=== PATIENT | male | born 1935 | race Caucasian/White ===

== ENCOUNTER → 2018-01-23 | Outpatient (CLI) | payer OTHER ==
[~2018-01-23] MED LIST: ABIR250T PO; CA C1TAB60 PO; CHOL2000 PO; OXYC5CAP2 PO; PRED5TAB19 PO
== END | disposition home or self-care (01) ==
LOC: RAD 10:20
PROVIDERS: ATTEND Internal Medicine Hematology & Oncology
DX: C41.9 Malignant neoplasm of bone and articular cartilage, unspecified (principal)
CPT/HCPCS: 79101; A9606

== ENCOUNTER → 2018-02-20 | Outpatient (CLI) | payer OTHER | END | disposition home or self-care (01) | LOC: RAD 10:12 | PROVIDERS: ATTEND Internal Medicine Hematology & Oncology | DX: C79.51 Secondary malignant neoplasm of bone (principal); C61 Malignant neoplasm of prostate | CPT/HCPCS: 79101; A9606 ==

== ENCOUNTER 2018-03-18 13:25 | Emergency (ER) | payer OTHER ==
[~2018-03-18] VITALS: Ht 175.3 cm; Wt 61.4 kg
[2018-03-18 13:59] LABS: MEAN CORPUSCULAR HEMOGLOBIN 27.2 pg (27.5-34.5); MEAN CORPUSCULAR HGB CONC 32.4 g/dL (33.2-36.2); MEAN PLATELET VOLUME 6.9 fL (7.4-10.4); PLATELET COUNT 284 x10^3/uL (130-400); RED BLOOD COUNT 2.72 x10^6/uL (4.38-5.82); RED CELL DISTRIBUTION WIDTH 22.1 % (9.4-14.8)
[2018-03-18 14:02] LABS: ALANINE AMINOTRANSFERASE 14 U/L (12-78); ALBUMIN 2.3 g/dL (3.4-5.0); ANION GAP 10 mmol/L (5-15); CALCIUM 8.4 mg/dL (8.5-10.1); CHLORIDE 95 mmol/L (98-107); CREATININE 0.71 mg/dL (0.7-1.3)
[2018-03-18 14:05] LABS: ALKALINE PHOSPHATASE 330 U/L (45-117); BILIRUBIN,TOTAL 0.3 mg/dL (0.2-1.0); TOTAL PROTEIN 8.4 g/dL (6.4-8.2)
[2018-03-18 14:18] LABS: MD YES
[2018-03-18 14:20] LABS: BAND#(MANUAL) 0.48 x10^3/uL; BANDS%(MANUAL) 7 % (0-7); LYMPH#(MANUAL) 1.52 x10^3/uL (1-3.4); LYMPHS% (MANUAL) 22 % (22-44); MONOS#(MANUAL) 0.28 x10^3/uL (0.3-2.7); MONOS% (MANUAL) 4 % (2-9); SEG#(MANUAL) 4.62 x10^3/uL (1.8-6.8); SEGS% (MANUAL) 67 % (42-75)
[2018-03-18 14:21] LABS: ANISOCYTOSIS 2+; MICROCYTOSIS 1+
[2018-03-18 14:22] LABS: <PLATELET ESTIMATE> ADEQUATE; <PLT MORPHOLOGY> NORMAL PLT MORPH; HYPOCHROMIA 1+
[2018-03-18 15:14] VITALS: BP 116/66
[2018-03-18 15:39] VITALS: BP 131/65
[2018-03-18 16:09] VITALS: BP 130/77
[2018-03-18] MEDS ORDERED: ACETAMINOPHEN 325 MG TABLET ONE (16:14)
[2018-03-18 16:17] VITALS: BP 141/70
[2018-03-18] MEDS ORDERED: ACETAMINOPHEN 325 MG TABLET PO ONE (16:30)
[2018-03-18 16:35] VITALS: BP 125/64
[2018-03-18 17:22] VITALS: BP 116/79
== END 2018-03-18 17:45 | disposition home or self-care (01) ==
LOC: ED 17:10
DX: D64.9 Anemia, unspecified (principal); Z85.46 Personal history of malignant neoplasm of prostate
CPT/HCPCS: 36415; 80053; 85025; 86850; 86900; 86923; 99284; P9016

== ENCOUNTER → 2018-03-21 | Outpatient (CLI) | payer OTHER | END | disposition home or self-care (01) | LOC: RAD 10:22 | PROVIDERS: ATTEND Internal Medicine Hematology & Oncology | DX: C79.51 Secondary malignant neoplasm of bone (principal); C61 Malignant neoplasm of prostate; R74.8 Abnormal levels of other serum enzymes | CPT/HCPCS: 79101; A9606 ==

== ENCOUNTER → 2018-04-18 | Outpatient (CLI) | payer OTHER ==
[~2018-04-18] MED LIST changes: +BACITRACIN 50,000 UNIT ONE; +BACITRACIN OINT 500U/GM, 15 GM ONE; +BUPIVACAINE/PF 0.5% ONE; +EPINEPHRINE 1 MG/ML, 1ML ONE; +THROMBIN 20,000 UNIT VIAL TP ONE; +TRAM50TA2 PO
== END | disposition home or self-care (01) ==
LOC: RAD 09:55
PROVIDERS: ATTEND Internal Medicine Hematology & Oncology
DX: C79.51 Secondary malignant neoplasm of bone (principal); C61 Malignant neoplasm of prostate; Z87.891 Personal history of nicotine dependence
CPT/HCPCS: 79101; A9606

== ENCOUNTER 2018-04-20 19:28 | Inpatient (IN) | payer OTHER ==
[~2018-04-20] VITALS: Ht 182.9 cm; Wt 66.8 kg
[~2018-04-20 19:28] MED LIST changes: -BACITRACIN 50,000 UNIT ONE; -BACITRACIN OINT 500U/GM, 15 GM ONE; -BUPIVACAINE/PF 0.5% ONE; -EPINEPHRINE 1 MG/ML, 1ML ONE; -THROMBIN 20,000 UNIT VIAL TP ONE
[2018-04-20] MEDS ORDERED: SODIUM CHLORIDE 0.9% 1,000ML IVBOLUS ONE ×2 (20:00→23:00)
[2018-04-20] MEDS ORDERED: SODIUM CHLORIDE FLUSH 10ML SYR IVF ONE (20:00)
[2018-04-20 20:27] LABS: MEAN CORPUSCULAR HEMOGLOBIN 29.9 pg (27.5-34.5); MEAN CORPUSCULAR VOLUME 87.8 fL (81-97); RED BLOOD COUNT 2.57 x10^6/uL (4.38-5.82); RED CELL DISTRIBUTION WIDTH 18.2 % (9.4-14.8)
[2018-04-20 20:30] LABS: INTERNATIONAL NORMALIZED RATIO 1.1 (0.93-1.1); PROTHROMBIN TIME 11.3 Seconds (9.6-11.5)
[2018-04-20 20:37] LABS: ALANINE AMINOTRANSFERASE 13 U/L (12-78); ANION GAP 11 mmol/L (5-15); CALCIUM 7.6 mg/dL (8.5-10.1); CHLORIDE 92 mmol/L (98-107); CREATININE 0.47 mg/dL (0.7-1.3)
[2018-04-20 20:39] LABS: ALKALINE PHOSPHATASE 205 U/L (45-117); BILIRUBIN,TOTAL 0.5 mg/dL (0.2-1.0); TOTAL PROTEIN 7.4 g/dL (6.4-8.2)
[2018-04-20 20:48] LABS: BASOPHILS % (AUTO) 0 % (0-1); EOSINOPHILS % (AUTO) 0 % (1-7); LYMPHOCYTES # (AUTO) 0.33 x10^3/uL (1-3.4); LYMPHOCYTES % (AUTO) 5 % (22-44); MD SCAN; MEAN PLATELET VOLUME 6.9 fL (7.4-10.4); MONOCYTES # (AUTO) 0.51 x10^3/uL (0.2-0.8); MONOCYTES % (AUTO) 8 % (2-9); NEUTROPHILS # (AUTO) 5.84 x10^3/uL (1.8-6.8); NEUTROPHILS % (AUTO) 87 % (42-75); PLATELET COUNT 107 x10^3/uL (130-400)
[2018-04-20 21:38] LABS: CULTURE INDICATED? YES; MICROSCOPIC INDICATED
[2018-04-20] MEDS ORDERED: CEFTRIAXONE 1,000 MG in SODIUM CHLORIDE 0.9% 50 ML IV ONE (22:00)
[2018-04-20] MEDS ORDERED: MORPHINE SULFATE 4 MG/ML, 1ML IVPush ONE (22:30)
[2018-04-20] MEDS ORDERED: CEFTRIAXONE PMX 1GM/50ML 50 ML ONE (22:35)
[2018-04-20] MEDS ORDERED: MORPHINE SULFATE 4 MG/ML, 1ML ONE (22:36)
[2018-04-20] MEDS ORDERED: CEFTRIAXONE 2 GM in SODIUM CHLORIDE 0.9% 50 ML IV SCH (23:00)
[2018-04-20] MEDS ORDERED: PHARMACY MAY ADJ FOR RENAL FX MC PRN (23:00)
[2018-04-20] MEDS ORDERED: SODIUM CHLORIDE 0.9%, 500ML IVBOLUS PRN ×2 (23:00)
[2018-04-20 23:06] LABS: ABSOLUTE RETICS # 0.033 x10^6/uL (0.5-1.5); RETICULOCYTE COUNT % 1.25 % (0.5-1.5)
[2018-04-20 23:09] LABS: RED BLOOD COUNT 2.57 x10^6/uL (4.38-5.82)
[2018-04-21 00:19] VITALS: BP 114/47
[2018-04-21 00:30] VITALS: BP 110/55
[2018-04-21 00:45] VITALS: BP 115/56
[2018-04-21] MEDS: SODIUM CHLORIDE 0.9% 1,000 ML IV SCH ×2 (01:13→21:56)
[2018-04-21 01:45] VITALS: BP 98/48
[2018-04-21 03:35] LABS: BASOPHILS # (AUTO) 0.01 x10^3/uL (0-0.1); BASOPHILS % (AUTO) 0 % (0-1); EOSINOPHILS # (AUTO) 0.01 x10^3/uL (0-0.4); EOSINOPHILS % (AUTO) 0 % (1-7); LYMPHOCYTES # (AUTO) 0.37 x10^3/uL (1-3.4); LYMPHOCYTES % (AUTO) 6 % (22-44); MD NO; MEAN CORPUSCULAR HEMOGLOBIN 30.2 pg (27.5-34.5); MEAN CORPUSCULAR HGB CONC 33.8 g/dL (33.2-36.2); MEAN CORPUSCULAR VOLUME 89.6 fL (81-97); MONOCYTES # (AUTO) 0.56 x10^3/uL (0.2-0.8); MONOCYTES % (AUTO) 9 % (2-9); NEUTROPHILS # (AUTO) 5.03 x10^3/uL (1.8-6.8); NEUTROPHILS % (AUTO) 84 % (42-75); PLATELET COUNT 100 x10^3/uL (130-400); RED BLOOD COUNT 2.73 x10^6/uL (4.38-5.82); RED CELL DISTRIBUTION WIDTH 17.2 % (9.4-14.8)
[2018-04-21 03:46] LABS: ALBUMIN 1.8 g/dL (3.4-5.0); ANION GAP 10 mmol/L (5-15); CALCIUM 7.2 mg/dL (8.5-10.1); CHLORIDE 95 mmol/L (98-107)
[2018-04-21 03:50] LABS: ALANINE AMINOTRANSFERASE 10 U/L (12-78); ALKALINE PHOSPHATASE 185 U/L (45-117); BILIRUBIN,TOTAL 0.8 mg/dL (0.2-1.0); CREATININE 0.48 mg/dL (0.7-1.3); TOTAL PROTEIN 6.6 g/dL (6.4-8.2)
[2018-04-21 04:00] VITALS: BP 142/73
[2018-04-21] MEDS: MORPHINE SULFATE 4 MG/ML, 1ML IV PRN ×2 (04:20→06:27)
[2018-04-21] MEDS ORDERED: POTASSIUM PHOSPHATE 44 MEQ in SODIUM CHLORIDE 0.9% 500 ML IV ONE (08:00)
[2018-04-21] MEDS ORDERED: CEFTRIAXONE 1,000 MG in SODIUM CHLORIDE 0.9% 50 ML IV SCH (10:00)
[2018-04-21] MEDS ORDERED: ZIPRASIDONE 20 MG INJ IM PRN (13:30)
[2018-04-21] MEDS ORDERED: CEFTRIAXONE 2 GM in SODIUM CHLORIDE 0.9% 50 ML IV SCH (22:00)
[2018-04-22 04:00] VITALS: BP 102/48
[2018-04-22 05:38] LABS: ANION GAP 13 mmol/L (5-15); CALCIUM 7.2 mg/dL (8.5-10.1); CHLORIDE 98 mmol/L (98-107); CREATININE 0.37 mg/dL (0.7-1.3)
[2018-04-22 05:46] LABS: MEAN CORPUSCULAR HEMOGLOBIN 30.4 pg (27.5-34.5); MEAN CORPUSCULAR HGB CONC 34.2 g/dL (33.2-36.2); MEAN CORPUSCULAR VOLUME 88.9 fL (81-97); MEAN PLATELET VOLUME 6.8 fL (7.4-10.4); PLATELET COUNT 98 x10^3/uL (130-400); RED BLOOD COUNT 2.67 x10^6/uL (4.38-5.82); RED CELL DISTRIBUTION WIDTH 17.3 % (9.4-14.8)
[2018-04-22 06:16] LABS: BASOPHILS # (AUTO) 0.01 x10^3/uL (0-0.1); BASOPHILS % (AUTO) 0 % (0-1); EOSINOPHILS # (AUTO) 0.02 x10^3/uL (0-0.4); EOSINOPHILS % (AUTO) 1 % (1-7); LYMPHOCYTES % (AUTO) 6 % (22-44); MD SCAN; MONOCYTES # (AUTO) 0.43 x10^3/uL (0.2-0.8); MONOCYTES % (AUTO) 8 % (2-9); NEUTROPHILS # (AUTO) 4.49 x10^3/uL (1.8-6.8); NEUTROPHILS % (AUTO) 85 % (42-75)
[2018-04-22] MEDS ORDERED: SODIUM PHOSPHATE 20 MMOL in SODIUM CHLORIDE 0.9% 500 ML IV ONE (08:00)
[2018-04-22] MEDS: LINEZOLID PMX 600MG/300ML 300 ML IV SCH ×2 (08:10→20:29)
[2018-04-22] MEDS: FENTANYL 12 MCG PATCH TD SCH (09:00)
[2018-04-22] MEDS ORDERED: ATROPINE SYRINGE 0.1 MG/ML, 10ML ONE (11:43)
[2018-04-22] MEDS ORDERED: LORazepam 2 MG/ML, 1ML ONE (18:03)
[2018-04-22] MEDS: SODIUM CHLORIDE 0.9% 1,000 ML IV SCH (18:15)
[2018-04-22] MEDS ORDERED: LORazepam 2 MG/ML, 1ML IVPush PRN (18:30)
[2018-04-22] MEDS ORDERED: LEVETIRACETAM 1,000 MG in SODIUM CHLORIDE 0.9% 100 ML IV ONE (18:30)
[2018-04-22] MEDS ORDERED: OMNIPAQUE 350 MG/ML, 75ML BOTTLE ONE (19:01)
[2018-04-23] VITALS (10 sets, daily range): BP systolic 116–143; BP diastolic 54–73
[2018-04-23 04:27] LABS: MEAN CORPUSCULAR HEMOGLOBIN 29.8 pg (27.5-34.5); MEAN CORPUSCULAR HGB CONC 33.6 g/dL (33.2-36.2); MEAN CORPUSCULAR VOLUME 88.6 fL (81-97); RED BLOOD COUNT 2.73 x10^6/uL (4.38-5.82); RED CELL DISTRIBUTION WIDTH 17.1 % (9.4-14.8)
[2018-04-23 04:34] LABS: ANION GAP 9 mmol/L (5-15); CALCIUM 7.5 mg/dL (8.5-10.1); CHLORIDE 98 mmol/L (98-107); CREATININE 0.38 mg/dL (0.7-1.3)
[2018-04-23 05:16] LABS: BASOPHILS # (AUTO) 0.01 x10^3/uL (0-0.1); BASOPHILS % (AUTO) 0 % (0-1); EOSINOPHILS % (AUTO) 0 % (1-7); LYMPHOCYTES # (AUTO) 0.36 x10^3/uL (1-3.4); LYMPHOCYTES % (AUTO) 6 % (22-44); MD SCAN; MEAN PLATELET VOLUME 6.7 fL (7.4-10.4); MONOCYTES # (AUTO) 0.53 x10^3/uL (0.2-0.8); MONOCYTES % (AUTO) 9 % (2-9); NEUTROPHILS # (AUTO) 5.12 x10^3/uL (1.8-6.8); NEUTROPHILS % (AUTO) 85 % (42-75); PLATELET COUNT 95 x10^3/uL (130-400)
[2018-04-23] MEDS ORDERED: LEVETIRACETAM 750 MG in SODIUM CHLORIDE 0.9% 100 ML IV SCH ×2 (06:30→22:00)
[2018-04-23] MEDS: POTASSIUM CHLORIDE 20 MEQ TAB.ER.PRT PO SCH ×2 (08:00→17:00)
[2018-04-23] MEDS ORDERED: SODIUM PHOSPHATE 10 MMOL in SODIUM CHLORIDE 0.9% 500 ML IV ONE (08:00)
[2018-04-23] MEDS: LINEZOLID PMX 600MG/300ML 300 ML IV SCH (08:33)
[2018-04-23] MEDS: SODIUM CHLORIDE 0.9% 1,000 ML IV SCH (10:43)
[2018-04-23] MEDS ORDERED: SODIUM CHLORIDE 3% 500 ML IV ONE (13:00)
[2018-04-23] MEDS ORDERED: POTASSIUM CHLORIDE 20 MEQ in SODIUM CHLORIDE 0.9% 250 ML IV ONE (13:00)
[2018-04-23 13:47] LABS: PLATELET (PFA) 91 x10^3/uL (130-400)
[2018-04-23] MEDS ORDERED: FENTANYL PF 250 MCG/5ML ONE (17:27)
[2018-04-23] MEDS ORDERED: PROPOFOL 10 MG/ML, 20ML ONE (17:28)
[2018-04-23] MEDS ORDERED: SUCCINYLCHOLINE 20 MG/ML, 10ML ONE (17:28)
[2018-04-23] MEDS ORDERED: PHENYLEPHRINE 10 MG/ML ONE (17:36)
[2018-04-23] MEDS ORDERED: CEFUROXIME 1.5 GM ONE (18:20)
[2018-04-23 18:21] LABS: BASOPHILS # (AUTO) 0.02 x10^3/uL (0-0.1); BASOPHILS % (AUTO) 0 % (0-1); EOSINOPHILS # (AUTO) 0.02 x10^3/uL (0-0.4); EOSINOPHILS % (AUTO) 0 % (1-7); LYMPHOCYTES # (AUTO) 0.26 x10^3/uL (1-3.4); LYMPHOCYTES % (AUTO) 5 % (22-44); MD NO; MEAN CORPUSCULAR HEMOGLOBIN 30.6 pg (27.5-34.5); MEAN CORPUSCULAR HGB CONC 33.8 g/dL (33.2-36.2); MEAN CORPUSCULAR VOLUME 90.4 fL (81-97); MEAN PLATELET VOLUME 6.6 fL (7.4-10.4); MONOCYTES # (AUTO) 0.31 x10^3/uL (0.2-0.8); MONOCYTES % (AUTO) 7 % (2-9); NEUTROPHILS # (AUTO) 4.24 x10^3/uL (1.8-6.8); NEUTROPHILS % (AUTO) 87 % (42-75); PLATELET COUNT 128 x10^3/uL (130-400); RED BLOOD COUNT 3.25 x10^6/uL (4.38-5.82); RED CELL DISTRIBUTION WIDTH 16.1 % (9.4-14.8)
[2018-04-23 18:29] LABS: ANION GAP 10 mmol/L (5-15); CALCIUM 7.7 mg/dL (8.5-10.1); CHLORIDE 100 mmol/L (98-107); CREATININE 0.36 mg/dL (0.7-1.3)
[2018-04-23] MEDS ORDERED: ROCURONIUM 10 MG/ML,10ML ONE (18:41)
[2018-04-23] MEDS ORDERED: BUPIVACAINE/PF 0.5% INFIL ONE (19:50)
[2018-04-23] MEDS ORDERED: BACITRACIN 50,000 UNIT IRRIG ONE (19:50)
[2018-04-23] MEDS ORDERED: THROMBIN 20,000 UNIT VIAL TP ONE (19:50)
[2018-04-23] MEDS ORDERED: ONDANSETRON 2MG/ML, 2ML ONE (20:34)
[2018-04-23] MEDS ORDERED: VASOPRESSIN 20 UNIT/ML, 1ML ONE (20:34)
[2018-04-23] MEDS ORDERED: FENTANYL PF 100 MCG/2ML IV PRN (21:00)
[2018-04-23] MEDS ORDERED: hydrALAzine 20 MG/ML, 1ML IV PRN (21:00)
[2018-04-23] MEDS ORDERED: ONDANSETRON 2MG/ML, 2ML IV PRN (21:00)
[2018-04-23] MEDS ORDERED: LABETALOL 5MG/ML, 20ML IV PRN (21:00)
[2018-04-23] MEDS ORDERED: MORPHINE SULFATE 4 MG/ML, 1ML IVPush PRN (21:00)
[2018-04-23] MEDS ORDERED: MIDAZOLAM 1 MG/ML, 2ML ONE ×2 (21:26→21:36)
[2018-04-23] MEDS ORDERED: FENTANYL PF 100 MCG/2ML ONE (21:29)
[2018-04-23] MEDS ORDERED: morphine SULFATE 10 MG/ML, 1ML ONE (21:29)
[2018-04-23] MEDS ORDERED: SODIUM CHLORIDE 3% 500 ML IV SCH (22:20)
[2018-04-23] MEDS ORDERED: SODIUM CHLORIDE 0.9%, 250ML ONE (22:49)
[2018-04-23] MEDS ORDERED: AMIODARONE 50 MG/ML, 3ML ONE (22:49)
[2018-04-23] MEDS ORDERED: DEXTROSE 5%, 500ML ONE (22:49)
[2018-04-23] MEDS ORDERED: DEXTROSE 5%, 100ML ONE (22:49)
[2018-04-23] MEDS ORDERED: EPINEPHRINE 1 MG/ML, 1ML ONE (22:49)
[2018-04-23] MEDS ORDERED: CODE BLUE RESPONSE XX ONE (22:49)
[2018-04-23 22:58] LABS: MD YES; MEAN CORPUSCULAR HEMOGLOBIN 30.9 pg (27.5-34.5); MEAN CORPUSCULAR HGB CONC 34.1 g/dL (33.2-36.2); MEAN CORPUSCULAR VOLUME 90.6 fL (81-97); MEAN PLATELET VOLUME 6.4 fL (7.4-10.4); PLATELET COUNT 139 x10^3/uL (130-400); RED CELL DISTRIBUTION WIDTH 16.5 % (9.4-14.8)
[2018-04-23] MEDS ORDERED: LORazepam 2 MG/ML, 1ML IVPush ONE (23:00)
[2018-04-23] MEDS ORDERED: AMIODARONE 150 MG in DEXTROSE 5% 100 ML IV ONE (23:00)
[2018-04-23] MEDS ORDERED: EPINEPHRINE 2 MG in SODIUM CHLORIDE 0.9% 248 ML IV PRN (23:00)
[2018-04-23] MEDS ORDERED: LORazepam 20 MG in SODIUM CHLORIDE 0.9% 240 ML IV SCH (23:00)
[2018-04-23] MEDS ORDERED: FILTER 0.22 MICRON IV PRN (23:00)
[2018-04-23] MEDS ORDERED: POTASSIUM CHLORIDE 40 MEQ in SODIUM CHLORIDE 0.9% 500 ML IV ONE (23:00)
[2018-04-23] MEDS ORDERED: AMIODARONE 900 MG in DEXTROSE 5% 482 ML IV PRN (23:00)
[2018-04-23 23:09] LABS: ALANINE AMINOTRANSFERASE 12 U/L (12-78); ALBUMIN 1.6 g/dL (3.4-5.0); ANION GAP 11 mmol/L (5-15); CALCIUM 7.1 mg/dL (8.5-10.1); CHLORIDE 107 mmol/L (98-107); CREATININE 0.46 mg/dL (0.7-1.3)
[2018-04-23 23:12] LABS: ALKALINE PHOSPHATASE 145 U/L (45-117); BAND#(MANUAL) 0.31 x10^3/uL; BANDS%(MANUAL) 3 % (0-7); BILIRUBIN,TOTAL 0.5 mg/dL (0.2-1.0); LYMPH#(MANUAL) 1.24 x10^3/uL (1-3.4); LYMPHS% (MANUAL) 12 % (22-44); METAMYELOCYTES% (MANUAL) 1 % (0-1); MYELOCYTES% (MANUAL) 1 % (0-0); TOTAL PROTEIN 6.1 g/dL (6.4-8.2)
[2018-04-23 23:13] LABS: ANISOCYTOSIS 1+; EOS% (MANUAL) 1 % (1-7); MONOS% (MANUAL) 1 % (2-9); POLYCHROMASIA 1+; SEG#(MANUAL) 8.34 x10^3/uL (1.8-6.8); SEGS% (MANUAL) 81 % (42-75)
[2018-04-23 23:14] LABS: <PLATELET ESTIMATE> ADEQUATE; <PLT MORPHOLOGY> NORMAL PLT MORPH
[2018-04-23 23:16] LABS: TOXIC GRAN 1+
[2018-04-23] MEDS ORDERED: PHARMACY MAY ADJ FOR RENAL FX MC SCH (23:30)
[2018-04-24] MEDS: LINEZOLID PMX 600MG/300ML 300 ML IV SCH (01:36)
[2018-04-24] MEDS: FAMOTIDINE 20 MG/2 ML IV SCH ×2 (02:16→13:56)
[2018-04-24] MEDS: NOREPINEPHRINE 4 MG in SODIUM CHLORIDE 0.9% 246 ML IV PRN ×4 (02:50→17:27)
[2018-04-24 03:13] LABS: TROPONIN I 0.185 ng/mL (0.000-0.045)
[2018-04-24] MEDS ORDERED: EPINEPHRINE 4 MG in SODIUM CHLORIDE 0.9% 246 ML IV PRN (03:23)
[2018-04-24 04:00] VITALS: BP 121/46
[2018-04-24] MEDS: POTASSIUM CHLORIDE 40 MEQ in SODIUM CHLORIDE 0.9% 1,000 ML IV SCH ×2 (04:00→05:09)
[2018-04-24 04:52] LABS: MEAN CORPUSCULAR HEMOGLOBIN 30.6 pg (27.5-34.5); MEAN CORPUSCULAR HGB CONC 33.5 g/dL (33.2-36.2); MEAN CORPUSCULAR VOLUME 91.4 fL (81-97); MEAN PLATELET VOLUME 6.8 fL (7.4-10.4); PLATELET COUNT 150 x10^3/uL (130-400); RED BLOOD COUNT 2.45 x10^6/uL (4.38-5.82); RED CELL DISTRIBUTION WIDTH 17.1 % (9.4-14.8)
[2018-04-24 04:56] LABS: ANION GAP 15 mmol/L (5-15); CHLORIDE 110 mmol/L (98-107); CREATININE 0.62 mg/dL (0.7-1.3)
[2018-04-24 05:47] LABS: MD YES
[2018-04-24 05:49] LABS: ANISOCYTOSIS 1+; BAND#(MANUAL) 0.99 x10^3/uL; BANDS%(MANUAL) 9 % (0-7); LYMPH#(MANUAL) 0.77 x10^3/uL (1-3.4); LYMPHS% (MANUAL) 7 % (22-44); METAMYELOCYTES# (MANUAL) 0.33 x10^3/uL (0-0); METAMYELOCYTES% (MANUAL) 3 % (0-1); MONOS#(MANUAL) 0.22 x10^3/uL (0.3-2.7); MONOS% (MANUAL) 2 % (2-9); SEG#(MANUAL) 8.69 x10^3/uL (1.8-6.8); SEGS% (MANUAL) 79 % (42-75)
[2018-04-24 05:50] LABS: <PLATELET ESTIMATE> ADEQUATE; <PLT MORPHOLOGY> NORMAL PLT MORPH; TOXIC GRAN 1+
[2018-04-24] MEDS ORDERED: FILTER 0.22 MICRON IV ONE (09:00)
[2018-04-24] MEDS ORDERED: PHENYTOIN SODIUM 1,000 MG in SODIUM CHLORIDE 0.9% 100 ML IV ONE (09:00)
[2018-04-24] MEDS: LORazepam 20 MG in DEXTROSE 5% 240 ML IV SCH ×2 (09:38→20:00)
[2018-04-24] MEDS: AMPICILLIN 1 GM in SODIUM CHLORIDE 0.9% 100 ML IV SCH ×3 (09:46→21:05)
[2018-04-24] MEDS ORDERED: LEVETIRACETAM 1,000 MG in SODIUM CHLORIDE 0.9% 100 ML IV SCH (10:00)
[2018-04-24 10:06] VITALS: BP 118/47
[2018-04-24 10:21] VITALS: BP 116/51
[2018-04-24 10:36] VITALS: BP 99/45
[2018-04-24] MEDS: LEVETIRACETAM 1,000 MG in SODIUM CHLORIDE 0.9% 100 ML IV SCH ×2 (11:07→22:11)
[2018-04-24 12:00] VITALS: BP 119/49
[2018-04-24] MEDS ORDERED: EPINEPHRINE SYRINGE 0.1 MG/ML, 10ML ONE (12:00)
[2018-04-24] MEDS ORDERED: SODIUM CHLORIDE 3% 500 ML IV SCH ×2 (22:20)
[2018-04-25] VITALS (8 sets, daily range): BP systolic 118–143; BP diastolic 39–47
[2018-04-25] MEDS: FAMOTIDINE 20 MG/2 ML IV SCH ×2 (01:19→15:16)
[2018-04-25] MEDS: AMPICILLIN 1 GM in SODIUM CHLORIDE 0.9% 100 ML IV SCH ×4 (03:20→21:23)
[2018-04-25 04:27] LABS: FIO2 40 %
[2018-04-25 04:39] LABS: ANION GAP 9 mmol/L (5-15); CALCIUM 6.8 mg/dL (8.5-10.1); CHLORIDE 115 mmol/L (98-107); CREATININE 0.44 mg/dL (0.7-1.3)
[2018-04-25 05:49] LABS: MEAN CORPUSCULAR HEMOGLOBIN 31.1 pg (27.5-34.5); MEAN CORPUSCULAR HGB CONC 35.2 g/dL (33.2-36.2); MEAN CORPUSCULAR VOLUME 88.3 fL (81-97); RED BLOOD COUNT 2.29 x10^6/uL (4.38-5.82); RED CELL DISTRIBUTION WIDTH 16.2 % (9.4-14.8)
[2018-04-25] MEDS: LORazepam 20 MG in DEXTROSE 5% 240 ML IV SCH ×2 (06:00→16:00)
[2018-04-25 06:11] LABS: MD YES; PLATELET COUNT 70 x10^3/uL (130-400)
[2018-04-25 06:14] LABS: BAND#(MANUAL) 0.25 x10^3/uL; BANDS%(MANUAL) 4 % (0-7); LYMPH#(MANUAL) 0.56 x10^3/uL (1-3.4); LYMPHS% (MANUAL) 9 % (22-44); MONOS#(MANUAL) 0.12 x10^3/uL (0.3-2.7); MONOS% (MANUAL) 2 % (2-9); NRBC % (MANUAL) 1 % (0-1); SEG#(MANUAL) 5.27 x10^3/uL (1.8-6.8); SEGS% (MANUAL) 85 % (42-75)
[2018-04-25 06:15] LABS: ANISOCYTOSIS 1+
[2018-04-25 06:16] LABS: <PLATELET ESTIMATE> DECREASED; TOXIC GRAN 1+
[2018-04-25 06:17] LABS: SMALL PLATELETS 1+
[2018-04-25] MEDS ORDERED: MAGNESIUM SULFATE PMX 2GM/50ML 50 ML IV ONE (07:30)
[2018-04-25] MEDS ORDERED: POTASSIUM CHLORIDE 10% 40 MEQ/30 ML UDC PO ONE (07:30)
[2018-04-25] MEDS: LEVETIRACETAM 1,000 MG in SODIUM CHLORIDE 0.9% 100 ML IV SCH ×2 (09:46→21:57)
[2018-04-25] MEDS: FENTANYL 12 MCG PATCH TD SCH (10:36)
[2018-04-25] MEDS: MORPHINE SULFATE 4 MG/ML, 1ML IV PRN (13:37)
[2018-04-25] MEDS ORDERED: POTASSIUM CHLORIDE 10% 40 MEQ/30 ML UDC ONE (14:59)
[2018-04-25] MEDS ORDERED: hydrALAzine 20 MG/ML, 1ML IV PRN (16:00)
[2018-04-25] MEDS: LABETALOL 5MG/ML, 20ML IVPush PRN (21:57)
[2018-04-26] MEDS ORDERED: FAMOTIDINE 20 MG TABLET ONE (01:07)
[2018-04-26] MEDS: LORazepam 20 MG in DEXTROSE 5% 240 ML IV SCH (01:10)
[2018-04-26] MEDS ORDERED: FAMOTIDINE 40 MG/5 ML ORAL SUSP NG SCH (01:30)
[2018-04-26] MEDS: FAMOTIDINE 40 MG/5 ML ORAL SUSP NG SCH ×2 (03:27→16:28)
[2018-04-26] MEDS: AMPICILLIN 1 GM in SODIUM CHLORIDE 0.9% 100 ML IV SCH ×4 (03:30→21:26)
[2018-04-26 04:46] VITALS: BP 121/56
[2018-04-26 04:51] LABS: ANION GAP 7 mmol/L (5-15); CHLORIDE 108 mmol/L (98-107)
[2018-04-26 04:53] LABS: CREATININE 0.45 mg/dL (0.7-1.3); TRIGLYCERIDES 91 mg/dL (50-200)
[2018-04-26 04:56] LABS: MEAN CORPUSCULAR HEMOGLOBIN 30.7 pg (27.5-34.5); MEAN CORPUSCULAR HGB CONC 34.6 g/dL (33.2-36.2); MEAN CORPUSCULAR VOLUME 88.5 fL (81-97); RED CELL DISTRIBUTION WIDTH 15.6 % (9.4-14.8)
[2018-04-26 05:53] LABS: MD YES; MEAN PLATELET VOLUME 6.9 fL (7.4-10.4); PLATELET COUNT 55 x10^3/uL (130-400)
[2018-04-26 05:54] LABS: BAND#(MANUAL) 0.56 x10^3/uL; BANDS%(MANUAL) 8 % (0-7); LYMPH#(MANUAL) 0.14 x10^3/uL (1-3.4); LYMPHS% (MANUAL) 2 % (22-44); METAMYELOCYTES# (MANUAL) 0.07 x10^3/uL (0-0); METAMYELOCYTES% (MANUAL) 1 % (0-1); MONOS#(MANUAL) 0.07 x10^3/uL (0.3-2.7); MONOS% (MANUAL) 1 % (2-9); SEG#(MANUAL) 6.16 x10^3/uL (1.8-6.8); SEGS% (MANUAL) 88 % (42-75)
[2018-04-26 05:55] LABS: ANISOCYTOSIS 1+
[2018-04-26 05:56] LABS: <PLATELET ESTIMATE> DECREASED; <PLT MORPHOLOGY> NORMAL PLT MORPH; TOXIC GRAN 1+
[2018-04-26] MEDS ORDERED: POTASSIUM PHOSPHATE 44 MEQ in SODIUM CHLORIDE 0.9% 500 ML IV ONE ×2 (07:00→12:30)
[2018-04-26] MEDS ORDERED: MAGNESIUM SULFATE PMX 4GM/100M 100 ML IV ONE (07:00)
[2018-04-26] MEDS ORDERED: POTASSIUM CHLORIDE 10% 40 MEQ/30 ML UDC PO ONE (12:30)
[2018-04-26] MEDS: LEVETIRACETAM 1,500 MG in SODIUM CHLORIDE 0.9% 100 ML IV SCH (22:12)
[2018-04-26] MEDS: FENTANYL PF 100 MCG/2ML IVPush PRN (23:15)
[2018-04-27] MEDS: FENTANYL PF 100 MCG/2ML IVPush PRN (01:08)
[2018-04-27] MEDS: FAMOTIDINE 40 MG/5 ML ORAL SUSP NG SCH ×2 (03:08→15:21)
[2018-04-27] MEDS: AMPICILLIN 1 GM in SODIUM CHLORIDE 0.9% 100 ML IV SCH (03:08)
[2018-04-27] MEDS: LABETALOL 5MG/ML, 20ML IVPush PRN (03:08)
[2018-04-27 04:00] VITALS: BP 121/55
[2018-04-27 04:52] LABS: ALBUMIN 1.7 g/dL (3.4-5.0); ANION GAP 9 mmol/L (5-15); CALCIUM 7.1 mg/dL (8.5-10.1); CHLORIDE 106 mmol/L (98-107)
[2018-04-27 04:54] LABS: MEAN CORPUSCULAR HEMOGLOBIN 30.3 pg (27.5-34.5); MEAN CORPUSCULAR HGB CONC 34.2 g/dL (33.2-36.2); MEAN CORPUSCULAR VOLUME 88.7 fL (81-97); RED BLOOD COUNT 2.59 x10^6/uL (4.38-5.82); RED CELL DISTRIBUTION WIDTH 15.8 % (9.4-14.8)
[2018-04-27 04:56] LABS: ALANINE AMINOTRANSFERASE 16 U/L (12-78); ALKALINE PHOSPHATASE 171 U/L (45-117); BILIRUBIN,TOTAL 0.4 mg/dL (0.2-1.0); TOTAL PROTEIN 5.9 g/dL (6.4-8.2)
[2018-04-27 05:56] LABS: MD YES; MEAN PLATELET VOLUME 8.2 fL (7.4-10.4)
[2018-04-27 05:58] LABS: <PLATELET ESTIMATE> DECREASED; <PLT MORPHOLOGY> NORMAL PLT MORPH; ANISOCYTOSIS 1+; BANDS%(MANUAL) 13 % (0-7); LYMPH#(MANUAL) 0.69 x10^3/uL (1-3.4); LYMPHS% (MANUAL) 10 % (22-44); METAMYELOCYTES# (MANUAL) 0.07 x10^3/uL (0-0); METAMYELOCYTES% (MANUAL) 1 % (0-1); MONOS#(MANUAL) 0.14 x10^3/uL (0.3-2.7); MONOS% (MANUAL) 2 % (2-9); SEG#(MANUAL) 5.11 x10^3/uL (1.8-6.8); SEGS% (MANUAL) 74 % (42-75); TOXIC GRAN 1+
[2018-04-27 05:59] LABS: POLYCHROMASIA 1+
[2018-04-27 06:00] LABS: PLATELET COUNT 38 x10^3/uL (130-400)
[2018-04-27 09:22] LABS: MEAN CORPUSCULAR HEMOGLOBIN 30.7 pg (27.5-34.5); MEAN CORPUSCULAR HGB CONC 34.2 g/dL (33.2-36.2); MEAN CORPUSCULAR VOLUME 89.6 fL (81-97); MEAN PLATELET VOLUME 7.9 fL (7.4-10.4); RED BLOOD COUNT 2.56 x10^6/uL (4.38-5.82); RED CELL DISTRIBUTION WIDTH 15.6 % (9.4-14.8)
[2018-04-27 09:35] LABS: BAND#(MANUAL) 1.08 x10^3/uL; BANDS%(MANUAL) 15 % (0-7); EOS#(MANUAL) 0.07 x10^3/uL (0.0-0.4); EOS% (MANUAL) 1 % (1-7); LYMPH#(MANUAL) 0.14 x10^3/uL (1-3.4); LYMPHS% (MANUAL) 2 % (22-44); MD YES; MONOS#(MANUAL) 0.07 x10^3/uL (0.3-2.7); MONOS% (MANUAL) 1 % (2-9); SEG#(MANUAL) 5.83 x10^3/uL (1.8-6.8); SEGS% (MANUAL) 81 % (42-75)
[2018-04-27 09:36] LABS: <PLATELET ESTIMATE> DECREASED; <PLT MORPHOLOGY> NORMAL PLT MORPH; ANISOCYTOSIS 1+
[2018-04-27 09:41] LABS: PLATELET COUNT 33 x10^3/uL (130-400)
[2018-04-27] MEDS: LEVETIRACETAM 1,500 MG in SODIUM CHLORIDE 0.9% 100 ML IV SCH ×2 (10:43→22:31)
[2018-04-27] MEDS: PIPERACILLIN/TAZO/PMX 3.375GM 50 ML IV SCH ×3 (10:43→22:31)
[2018-04-27] MEDS ORDERED: DIVALPROEX 250 MG TABLET.DR PO SCH (17:00)
[2018-04-27] MEDS: VALPROATE SODIUM 750 MG in SODIUM CHLORIDE 0.9% 100 ML IV SCH (17:28)
[2018-04-27] MEDS: ACETAMINOPHEN 650 MG/20.3 ML UDC NG PRN (18:02)
[2018-04-27] MEDS ORDERED: DIVALPROEX 500 MG TABLET.DR PO SCH (21:00)
[2018-04-27] MEDS ORDERED: SODIUM CHLORIDE 3% 500 ML IV SCH (22:20)
[2018-04-27] MEDS ORDERED: ETOMIDATE 20 MG/10 ML ONE (23:00)
[2018-04-27] MEDS ORDERED: SUCCINYLCHOLINE 20 MG/ML, 10ML ONE (23:00)
[2018-04-28] VITALS (8 sets, daily range): BP systolic 90–147; BP diastolic 46–70
[2018-04-28] MEDS: PIPERACILLIN/TAZO/PMX 3.375GM 50 ML IV SCH ×4 (02:29→21:34)
[2018-04-28] MEDS: FAMOTIDINE 40 MG/5 ML ORAL SUSP NG SCH ×2 (03:27→17:29)
[2018-04-28 04:51] LABS: MEAN CORPUSCULAR HEMOGLOBIN 31.2 pg (27.5-34.5); MEAN CORPUSCULAR HGB CONC 34.5 g/dL (33.2-36.2); MEAN CORPUSCULAR VOLUME 90.3 fL (81-97); MEAN PLATELET VOLUME 7.8 fL (7.4-10.4); RED BLOOD COUNT 2.56 x10^6/uL (4.38-5.82); RED CELL DISTRIBUTION WIDTH 16.4 % (9.4-14.8)
[2018-04-28] MEDS ORDERED: FAMOTIDINE 20 MG TABLET ONE (04:53)
[2018-04-28 04:54] LABS: PLATELET COUNT 36 x10^3/uL (130-400)
[2018-04-28 04:59] LABS: ANION GAP 10 mmol/L (5-15); CALCIUM 7.6 mg/dL (8.5-10.1); CHLORIDE 107 mmol/L (98-107); CREATININE 0.46 mg/dL (0.7-1.3)
[2018-04-28] MEDS: VALPROATE SODIUM 750 MG in SODIUM CHLORIDE 0.9% 100 ML IV SCH ×2 (05:30→17:29)
[2018-04-28 05:37] LABS: MD YES
[2018-04-28 05:40] LABS: <PLATELET ESTIMATE> DECREASED; <PLT MORPHOLOGY> NORMAL PLT MORPH; ANISOCYTOSIS 1+; BAND#(MANUAL) 0.46 x10^3/uL; BANDS%(MANUAL) 8 % (0-7); EOS#(MANUAL) 0.06 x10^3/uL (0.0-0.4); EOS% (MANUAL) 1 % (1-7); LYMPH#(MANUAL) 0.35 x10^3/uL (1-3.4); LYMPHS% (MANUAL) 6 % (22-44); MONOS#(MANUAL) 0.12 x10^3/uL (0.3-2.7); MONOS% (MANUAL) 2 % (2-9); SEG#(MANUAL) 4.81 x10^3/uL (1.8-6.8); SEGS% (MANUAL) 83 % (42-75)
[2018-04-28 05:41] LABS: POLYCHROMASIA 1+
[2018-04-28] MEDS: ACETAMINOPHEN 650 MG/20.3 ML UDC NG PRN (07:56)
[2018-04-28] MEDS: FENTANYL 12 MCG PATCH TD SCH (09:33)
[2018-04-28] MEDS ORDERED: SODIUM CHLORIDE 0.9%, 500ML IVBOLUS ONE (11:30)
[2018-04-28] MEDS: LEVETIRACETAM 1,500 MG in SODIUM CHLORIDE 0.9% 100 ML IV SCH ×2 (15:06→22:24)
[2018-04-28] MEDS: SODIUM CHLORIDE 3% 500 ML IV SCH (22:20)
[2018-04-29] VITALS (19 sets, daily range): BP systolic 99–119; BP diastolic 47–67
[2018-04-29] MEDS: PIPERACILLIN/TAZO/PMX 3.375GM 50 ML IV SCH ×2 (03:19→09:07)
[2018-04-29] MEDS: FAMOTIDINE 40 MG/5 ML ORAL SUSP NG SCH ×2 (03:19→16:12)
[2018-04-29 04:27] LABS: MEAN CORPUSCULAR HEMOGLOBIN 31.5 pg (27.5-34.5); MEAN CORPUSCULAR HGB CONC 35.1 g/dL (33.2-36.2); MEAN CORPUSCULAR VOLUME 89.7 fL (81-97); MEAN PLATELET VOLUME 7.7 fL (7.4-10.4); PLATELET COUNT 76 x10^3/uL (130-400); RED BLOOD COUNT 2.25 x10^6/uL (4.38-5.82); RED CELL DISTRIBUTION WIDTH 16.1 % (9.4-14.8)
[2018-04-29 04:34] LABS: ANION GAP 8 mmol/L (5-15); CALCIUM 7.6 mg/dL (8.5-10.1); CHLORIDE 113 mmol/L (98-107)
[2018-04-29 04:35] LABS: CREATININE 0.44 mg/dL (0.7-1.3); TRIGLYCERIDES 83 mg/dL (50-200)
[2018-04-29] MEDS: VALPROATE SODIUM 750 MG in SODIUM CHLORIDE 0.9% 100 ML IV SCH ×2 (04:50→17:03)
[2018-04-29 04:54] LABS: MD YES
[2018-04-29 04:57] LABS: ANISOCYTOSIS 1+; BAND#(MANUAL) 0.31 x10^3/uL; BANDS%(MANUAL) 7 % (0-7); BASOS#(MANUAL) 0.04 x10^3/uL (0-0.1); BASOS% (MANUAL) 1 % (0-1); LYMPH#(MANUAL) 0.26 x10^3/uL (1-3.4); LYMPHS% (MANUAL) 6 % (22-44); METAMYELOCYTES# (MANUAL) 0.09 x10^3/uL (0-0); METAMYELOCYTES% (MANUAL) 2 % (0-1); MONOS#(MANUAL) 0.09 x10^3/uL (0.3-2.7); MONOS% (MANUAL) 2 % (2-9); MYELOCYTES# (MANUAL) 0.04 x10^3/uL (0-0); MYELOCYTES% (MANUAL) 1 % (0-0); POLYCHROMASIA 1+; REACTIVE LYMPHS # (MANUAL) 0.04 x10^3/uL (0-0); REACTIVE LYMPHS % (MANUAL) 1 % (0-0); SEG#(MANUAL) 3.52 x10^3/uL (1.8-6.8); SEGS% (MANUAL) 80 % (42-75)
[2018-04-29 04:58] LABS: <PLATELET ESTIMATE> DECREASED; <PLT MORPHOLOGY> NORMAL PLT MORPH
[2018-04-29 07:07] LABS: FIO2 40 %
[2018-04-29] MEDS: AMPICILLIN/SULBACTAM 3 GM in SODIUM CHLORIDE 0.9% 100 ML IV SCH ×3 (12:21→22:34)
[2018-04-29] MEDS: LEVETIRACETAM 1,500 MG in SODIUM CHLORIDE 0.9% 100 ML IV SCH ×2 (12:21→22:10)
[2018-04-29] MEDS: LACOSAMIDE 200 MG in SODIUM CHLORIDE 0.9% 100 ML IV SCH ×2 (16:40→22:34)
[2018-04-29] MEDS ORDERED: POTASSIUM PHOSPHATE 44 MEQ in SODIUM CHLORIDE 0.9% 500 ML IV ONE (17:30)
[2018-04-29] MEDS ORDERED: MAGNESIUM SULFATE PMX 2GM/50ML 50 ML IV ONE (17:30)
[2018-04-29] MEDS: SODIUM CHLORIDE 3% 500 ML IV SCH (22:20)
[2018-04-30] MEDS: FAMOTIDINE 40 MG/5 ML ORAL SUSP NG SCH ×2 (03:48→16:31)
[2018-04-30] MEDS: AMPICILLIN/SULBACTAM 3 GM in SODIUM CHLORIDE 0.9% 100 ML IV SCH (03:48)
[2018-04-30] MEDS: VALPROATE SODIUM 750 MG in SODIUM CHLORIDE 0.9% 100 ML IV SCH ×2 (05:04→17:21)
[2018-04-30 05:10] LABS: ANION GAP 8 mmol/L (5-15); CALCIUM 7.4 mg/dL (8.5-10.1); CHLORIDE 114 mmol/L (98-107); CREATININE 0.41 mg/dL (0.7-1.3)
[2018-04-30 06:05] LABS: MEAN CORPUSCULAR HEMOGLOBIN 30.5 pg (27.5-34.5); MEAN CORPUSCULAR VOLUME 89.8 fL (81-97); RED BLOOD COUNT 2.89 x10^6/uL (4.38-5.82); RED CELL DISTRIBUTION WIDTH 15.9 % (9.4-14.8)
[2018-04-30 06:30] LABS: BASOPHILS # (AUTO) 0.02 x10^3/uL (0-0.1); BASOPHILS % (AUTO) 1 % (0-1); EOSINOPHILS # (AUTO) 0.07 x10^3/uL (0-0.4); EOSINOPHILS % (AUTO) 2 % (1-7); LYMPHOCYTES # (AUTO) 0.23 x10^3/uL (1-3.4); LYMPHOCYTES % (AUTO) 6 % (22-44); MD SCAN; MEAN PLATELET VOLUME 8.3 fL (7.4-10.4); MONOCYTES # (AUTO) 0.31 x10^3/uL (0.2-0.8); MONOCYTES % (AUTO) 8 % (2-9); NEUTROPHILS # (AUTO) 3.35 x10^3/uL (1.8-6.8); NEUTROPHILS % (AUTO) 84 % (42-75); PLATELET COUNT 95 x10^3/uL (130-400)
[2018-04-30] MEDS ORDERED: LIDOCAINE 1%, 10ML INFIL ONE (07:00)
[2018-04-30 07:38] VITALS: BP 119/57
[2018-04-30 07:55] VITALS: BP 123/60
[2018-04-30] MEDS ORDERED: POTASSIUM CHLORIDE 20 MEQ PACKET PO ONE (08:00)
[2018-04-30] MEDS ORDERED: POTASSIUM CHLORIDE 10% 40 MEQ/30 ML UDC PO ONE (08:00)
[2018-04-30] MEDS ORDERED: LIDOCAINE-MPF 1%, 5ML ONE (08:07)
[2018-04-30] MEDS: MORPHINE SULFATE 4 MG/ML, 1ML IV PRN (08:42)
[2018-04-30 09:00] VITALS: BP 119/62
[2018-04-30] MEDS: LACOSAMIDE 200 MG in SODIUM CHLORIDE 0.9% 100 ML IV SCH ×2 (09:19→21:40)
[2018-04-30] MEDS: LEVETIRACETAM 1,500 MG in SODIUM CHLORIDE 0.9% 100 ML IV SCH ×2 (10:27→21:02)
[2018-04-30] MEDS ORDERED: SODIUM CHLORIDE 1 GM TABLET PO SCH (10:30)
[2018-04-30] MEDS ORDERED: SODIUM CHLORIDE 3% 500 ML IV SCH (10:30)
[2018-04-30] MEDS: ACETAMINOPHEN 650 MG/20.3 ML UDC NG PRN (16:31)
[2018-04-30] MEDS: SODIUM CHLORIDE 3% 500 ML IV SCH (19:30)
[2018-05-01] MEDS: ACETAMINOPHEN 650 MG/20.3 ML UDC NG PRN ×3 (01:23→20:36)
[2018-05-01] MEDS: FENTANYL PF 100 MCG/2ML IVPush PRN (03:03)
[2018-05-01] MEDS: FAMOTIDINE 40 MG/5 ML ORAL SUSP NG SCH ×2 (03:04→16:30)
[2018-05-01 04:46] LABS: BASOPHILS # (AUTO) 0.04 x10^3/uL (0-0.1); BASOPHILS % (AUTO) 1 % (0-1); EOSINOPHILS # (AUTO) 0.06 x10^3/uL (0-0.4); EOSINOPHILS % (AUTO) 1 % (1-7); LYMPHOCYTES # (AUTO) 0.23 x10^3/uL (1-3.4); LYMPHOCYTES % (AUTO) 6 % (22-44); MD NO; MEAN CORPUSCULAR HEMOGLOBIN 30.9 pg (27.5-34.5); MEAN CORPUSCULAR HGB CONC 34.2 g/dL (33.2-36.2); MEAN CORPUSCULAR VOLUME 90.3 fL (81-97); MEAN PLATELET VOLUME 7.9 fL (7.4-10.4); MONOCYTES # (AUTO) 0.36 x10^3/uL (0.2-0.8); MONOCYTES % (AUTO) 9 % (2-9); NEUTROPHILS # (AUTO) 3.39 x10^3/uL (1.8-6.8); NEUTROPHILS % (AUTO) 83 % (42-75); PLATELET COUNT 106 x10^3/uL (130-400); RED BLOOD COUNT 2.82 x10^6/uL (4.38-5.82); RED CELL DISTRIBUTION WIDTH 16.2 % (9.4-14.8)
[2018-05-01] MEDS: VALPROATE SODIUM 750 MG in SODIUM CHLORIDE 0.9% 100 ML IV SCH ×2 (04:50→20:02)
[2018-05-01 05:00] LABS: CHLORIDE 114 mmol/L (98-107)
[2018-05-01 05:05] LABS: ANION GAP 9 mmol/L (5-15); CREATININE 0.35 mg/dL (0.7-1.3)
[2018-05-01] MEDS: SODIUM CHLORIDE 3% 500 ML IV SCH (08:34)
[2018-05-01] MEDS: LEVETIRACETAM 1,500 MG in SODIUM CHLORIDE 0.9% 100 ML IV SCH ×2 (09:33→22:07)
[2018-05-01] MEDS: LACOSAMIDE 200 MG in SODIUM CHLORIDE 0.9% 100 ML IV SCH ×2 (10:52→20:46)
[2018-05-01] MEDS: FENTANYL 12 MCG PATCH TD SCH (10:53)
[2018-05-01] MEDS: MORPHINE SULFATE 4 MG/ML, 1ML IV PRN (15:12)
[2018-05-02] MEDS: FAMOTIDINE 40 MG/5 ML ORAL SUSP NG SCH ×2 (03:30→15:27)
[2018-05-02 04:40] LABS: MEAN CORPUSCULAR HEMOGLOBIN 30.3 pg (27.5-34.5); MEAN CORPUSCULAR HGB CONC 33.4 g/dL (33.2-36.2); MEAN CORPUSCULAR VOLUME 90.8 fL (81-97); RED BLOOD COUNT 3.03 x10^6/uL (4.38-5.82); RED CELL DISTRIBUTION WIDTH 16.1 % (9.4-14.8)
[2018-05-02] MEDS: MORPHINE SULFATE 4 MG/ML, 1ML IV PRN ×2 (04:43→23:01)
[2018-05-02] MEDS: VALPROATE SODIUM 750 MG in SODIUM CHLORIDE 0.9% 100 ML IV SCH ×2 (04:43→20:22)
[2018-05-02 04:45] LABS: CALCIUM 7.8 mg/dL (8.5-10.1); CHLORIDE 110 mmol/L (98-107)
[2018-05-02 04:50] LABS: ANION GAP 9 mmol/L (5-15); CREATININE 0.36 mg/dL (0.7-1.3); TRIGLYCERIDES 56 mg/dL (50-200)
[2018-05-02 05:36] LABS: MD YES
[2018-05-02 05:41] LABS: PLATELET COUNT 90 x10^3/uL (130-400)
[2018-05-02 05:42] LABS: ANISOCYTOSIS 1+; BAND#(MANUAL) 0.52 x10^3/uL; BANDS%(MANUAL) 11 % (0-7); EOS#(MANUAL) 0.09 x10^3/uL (0.0-0.4); EOS% (MANUAL) 2 % (1-7); LYMPH#(MANUAL) 0.14 x10^3/uL (1-3.4); LYMPHS% (MANUAL) 3 % (22-44); METAMYELOCYTES# (MANUAL) 0.05 x10^3/uL (0-0); METAMYELOCYTES% (MANUAL) 1 % (0-1); MONOS#(MANUAL) 0.42 x10^3/uL (0.3-2.7); MONOS% (MANUAL) 9 % (2-9); MYELOCYTES# (MANUAL) 0.05 x10^3/uL (0-0); MYELOCYTES% (MANUAL) 1 % (0-0); SEG#(MANUAL) 3.43 x10^3/uL (1.8-6.8); SEGS% (MANUAL) 73 % (42-75)
[2018-05-02 05:43] LABS: <PLATELET ESTIMATE> DECREASED; <PLT MORPHOLOGY> NORMAL PLT MORPH
[2018-05-02 05:44] LABS: POLYCHROMASIA 1+
[2018-05-02] MEDS: ACETAMINOPHEN 650 MG/20.3 ML UDC NG PRN ×3 (06:29→22:54)
[2018-05-02 07:43] VITALS: BP 81/43
[2018-05-02 07:56] VITALS: BP 85/46
[2018-05-02 08:11] VITALS: BP 91/48
[2018-05-02] MEDS: LEVETIRACETAM 1,500 MG in SODIUM CHLORIDE 0.9% 100 ML IV SCH ×2 (08:55→22:48)
[2018-05-02] MEDS ORDERED: SODIUM CHLORIDE 3% 500 ML IV SCH (10:00)
[2018-05-02] MEDS: LACOSAMIDE 200 MG in SODIUM CHLORIDE 0.9% 100 ML IV SCH ×2 (10:59→21:24)
[2018-05-02] MEDS ORDERED: FAMOTIDINE 20 MG TABLET ONE ×2 (15:45→15:52)
[2018-05-02] MEDS: SODIUM CHLORIDE 1 GM TABLET PO SCH ×2 (15:49→20:26)
[2018-05-02] MEDS ORDERED: VANCOMYCIN PER PHARMACY MC PRN (17:30)
[2018-05-02] MEDS ORDERED: SODIUM CHLORIDE 0.9%, 500ML IVBOLUS ONE (17:30)
[2018-05-02] MEDS: PIPERACILLIN/TAZO/PMX 4.5GM 100 ML IV SCH (17:31)
[2018-05-02 18:05] LABS: MICROSCOPIC INDICATED
[2018-05-02] MEDS ORDERED: SODIUM CHLORIDE 0.9% 1,000ML IVBOLUS ONE (18:30)
[2018-05-02] MEDS ORDERED: VANCOMYCIN 1,200 MG in SODIUM CHLORIDE 0.9% 250 ML IV SCH (18:30)
[2018-05-02] MEDS ORDERED: PHARMACOKINETIC MONITORING MC PRN (18:30)
[2018-05-02 19:14] LABS: CULTURE INDICATED? NO
[2018-05-03] MEDS: PIPERACILLIN/TAZO/PMX 4.5GM 100 ML IV SCH ×2 (02:20→12:45)
[2018-05-03] MEDS: MORPHINE SULFATE 4 MG/ML, 1ML IV PRN ×2 (03:18→05:09)
[2018-05-03] MEDS: FAMOTIDINE 40 MG/5 ML ORAL SUSP NG SCH (04:13)
[2018-05-03 04:40] LABS: FIO2 30 %
[2018-05-03] MEDS: ACETAMINOPHEN 650 MG/20.3 ML UDC NG PRN ×2 (06:18→12:52)
[2018-05-03 06:21] LABS: MEAN CORPUSCULAR HEMOGLOBIN 30.4 pg (27.5-34.5); MEAN CORPUSCULAR HGB CONC 33.3 g/dL (33.2-36.2); MEAN CORPUSCULAR VOLUME 91.5 fL (81-97); RED BLOOD COUNT 2.89 x10^6/uL (4.38-5.82); RED CELL DISTRIBUTION WIDTH 16.1 % (9.4-14.8)
[2018-05-03 06:28] LABS: ANION GAP 8 mmol/L (5-15); CALCIUM 8.1 mg/dL (8.5-10.1); CHLORIDE 110 mmol/L (98-107); CREATININE 0.44 mg/dL (0.7-1.3)
[2018-05-03 06:38] LABS: MD YES
[2018-05-03 06:41] LABS: ANISOCYTOSIS 1+; BAND#(MANUAL) 0.78 x10^3/uL; BANDS%(MANUAL) 17 % (0-7); LYMPH#(MANUAL) 0.32 x10^3/uL (1-3.4); LYMPHS% (MANUAL) 7 % (22-44); METAMYELOCYTES# (MANUAL) 0.05 x10^3/uL (0-0); METAMYELOCYTES% (MANUAL) 1 % (0-1); MONOS#(MANUAL) 0.14 x10^3/uL (0.3-2.7); MONOS% (MANUAL) 3 % (2-9); POLYCHROMASIA 1+; SEG#(MANUAL) 3.31 x10^3/uL (1.8-6.8); SEGS% (MANUAL) 72 % (42-75)
[2018-05-03 06:42] LABS: <PLATELET ESTIMATE> DECREASED; <PLT MORPHOLOGY> NORMAL PLT MORPH
[2018-05-03 06:43] LABS: PLATELET COUNT 88 x10^3/uL (130-400)
[2018-05-03] MEDS ORDERED: SODIUM CHLORIDE 0.9%, 250ML IVBOLUS ONE ×2 (08:00→10:00)
[2018-05-03] MEDS: VALPROATE SODIUM 750 MG in SODIUM CHLORIDE 0.9% 100 ML IV SCH (08:30)
[2018-05-03] MEDS: SODIUM CHLORIDE 1 GM TABLET PO SCH (08:47)
[2018-05-03] MEDS ORDERED: SODIUM CHLORIDE 3% 500 ML IV SCH ×2 (09:00)
[2018-05-03] MEDS ORDERED: PANTOPRAZOLE 40 MG IV IVPush SCH (09:00)
[2018-05-03] MEDS ORDERED: SODIUM CHLORIDE 1 GM TABLET PO ONE (09:00)
[2018-05-03] MEDS ORDERED: SODIUM CHLORIDE 1 GM TABLET PO SCH (09:00)
[2018-05-03 09:43] VITALS: BP 80/41
[2018-05-03 09:58] VITALS: BP 98/56
[2018-05-03 10:15] VITALS: BP 101/60
[2018-05-03 10:30] VITALS: BP 108/60
[2018-05-03 10:55] VITALS: BP 113/61
[2018-05-03] MEDS: LACOSAMIDE 200 MG in SODIUM CHLORIDE 0.9% 100 ML IV SCH (12:45)
[2018-05-03] MEDS ORDERED: VANCOMYCIN 1,200 MG in SODIUM CHLORIDE 0.9% 250 ML IV SCH ×2 (13:00→17:30)
[2018-05-03] MEDS: LEVETIRACETAM 1,500 MG in SODIUM CHLORIDE 0.9% 100 ML IV SCH (13:25)
[2018-05-03] MEDS: MORPHINE SULFATE 4 MG/ML, 1ML IVPush PRN ×2 (14:20→14:30)
[2018-05-03] MEDS: LORazepam 2 MG/ML, 1ML IVPush PRN ×2 (14:21→14:30)
[2018-05-03] MEDS ORDERED: SCOPOLAMINE PATCH, 1.5MG PATCH.TD72 TD SCH (14:30)
[2018-05-03] MEDS ORDERED: ATROPINE OPHTH SOLN 1%, 2ML BC PRN (14:30)
[2018-05-03] MEDS ORDERED: MORPHINE SULFATE 4 MG/ML, 1ML IVPush PRN (14:30)
[2018-05-03] MEDS ORDERED: LORazepam 2 MG/ML, 1ML IVPush PRN (15:00)
[2018-05-03] MEDS ORDERED: MORPHINE SULFATE 4 MG/ML, 1ML IV PRN (15:00)
== END 2018-05-03 16:16 | disposition expired | DRG 25 ==
LOC: ED 20:14 → EDIP 21:58 → CCU 23:28
PROVIDERS: ADMIT Internal Medicine; ATTEND Internal Medicine
PROC: 30233N1 Transfusion of Nonautologous Red Blood Cells into Peripheral Vein, Percutaneous Approach (ICD-10-PCS; 2018-04-21)
PROC: 30233R1 Transfusion of Nonautologous Platelets into Peripheral Vein, Percutaneous Approach (ICD-10-PCS; 2018-04-23)
PROC: 5A12012 Performance of Cardiac Output, Single, Manual (ICD-10-PCS; 2018-04-23)
PROC: 4A00X4Z Measurement of Central Nervous Electrical Activity, External Approach (ICD-10-PCS; 2018-04-23)
PROC: 02HV33Z Insertion of Infusion Device into Superior Vena Cava, Percutaneous Approach (ICD-10-PCS; 2018-04-23)
PROC: 0W9B30Z Drainage of Left Pleural Cavity with Drainage Device, Percutaneous Approach (ICD-10-PCS; 2018-04-23)
PROC: 5A1945Z Respiratory Ventilation, 24-96 Consecutive Hours (ICD-10-PCS; 2018-04-23)
PROC: 0BH17EZ Insertion of Endotracheal Airway into Trachea, Via Natural or Artificial Opening (ICD-10-PCS; 2018-04-23)
PROC: 00C40ZZ Extirpation of Matter from Intracranial Subdural Space, Open Approach (ICD-10-PCS; principal; 2018-04-23 16:00)
PROC: 5A1955Z Respiratory Ventilation, Greater than 96 Consecutive Hours (ICD-10-PCS; 2018-04-27)
PROC: 0BH17EZ Insertion of Endotracheal Airway into Trachea, Via Natural or Artificial Opening (ICD-10-PCS; 2018-04-27)
PROC: 0T9B70Z Drainage of Bladder with Drainage Device, Via Natural or Artificial Opening (ICD-10-PCS; 2018-05-02)
DX: S06.5X9A Traumatic subdural hemorrhage with loss of consciousness of unspecified duration, initial encounter (principal); J69.0 Pneumonitis due to inhalation of food and vomit; J96.00 Acute respiratory failure, unspecified whether with hypoxia or hypercapnia; G93.41 Metabolic encephalopathy; C79.51 Secondary malignant neoplasm of bone; E87.1 Hypo-osmolality and hyponatremia; Z99.11 Dependence on respirator [ventilator] status; G91.9 Hydrocephalus, unspecified; R47.01 Aphasia; E46 Unspecified protein-calorie malnutrition; D61.818 Other pancytopenia; J93.83 Other pneumothorax; G97.82 Other postprocedural complications and disorders of nervous system; D69.6 Thrombocytopenia, unspecified; N30.90 Cystitis, unspecified without hematuria; B95.2 Enterococcus as the cause of diseases classified elsewhere; C61 Malignant neoplasm of prostate; D63.8 Anemia in other chronic diseases classified elsewhere; E83.42 Hypomagnesemia; E83.39 Other disorders of phosphorus metabolism; E87.6 Hypokalemia; G40.409 Other generalized epilepsy and epileptic syndromes, not intractable, without status epilepticus; G93.89 Other specified disorders of brain; I07.1 Rheumatic tricuspid insufficiency; I46.9 Cardiac arrest, cause unspecified; W18.30XA Fall on same level, unspecified, initial encounter; Z51.5 Encounter for palliative care; R00.1 Bradycardia, unspecified; Z66 Do not resuscitate; Y99.8 Other external cause status; Z87.891 Personal history of nicotine dependence; Z92.21 Personal history of antineoplastic chemotherapy; Z92.3 Personal history of irradiation; Z88.5 Allergy status to narcotic agent; Z82.49 Family history of ischemic heart disease and other diseases of the circulatory system; Z82.3 Family history of stroke; Z72.89 Other problems related to lifestyle; Y93.89 Activity, other specified; Y92.098 Other place in other non-institutional residence as the place of occurrence of the external cause; Y83.8 Other surgical procedures as the cause of abnormal reaction of the patient, or of later complication, without mention of misadventure at the time of the procedure; Y82.8 Other medical devices associated with adverse incidents; Z68.20 Body mass index [BMI] 20.0-20.9, adult
CPT/HCPCS: 36415; 36430; 36600; 70450; 70470; 71045; 80048; 80053; 80164; 81001; 82140; 82533; 82728; 82803; 82962; 83540; 83550; 83605; 83690; 83735; 84100; 84145; 84295; 84443; 84478; 84484; 85014; 85018; 85025; 85045; 85049; 85576; 85610; 85730; 86850; 86900; 86923; 87040; 87070; 87077; 87081; 87086; 87186; 87205; 92950; 93005; 93306; 93970; 94002; 94003; 94150; 95819; 95951; 96374; 96375; C1713; C9254; G0378; J0171; J0290; J0295; J0696; J0697; J1165; J1953; J2020; J2060; J2250; J2405; J2543; J2704; J3010; J3370; J3480; J3486; J3490; J7060; Q9967; C1781; C9113; J0282; J0330; J2370; J3475; J7030; J7040; J7050; P9016; P9035; S0028